=== PATIENT | male | born 1995 | race African-American/Black ===

== ENCOUNTER 2017-07-08 02:55 | Emergency (ER) | payer BC ==
[2017-07-08 03:05] VITALS: TEMP 36.8
--- NOTE | 2017-07-08 03:09 | EMERGENCY ROOM VISIT NOTE ---
History Report prepared by Thai: Tyrell Lassiter Under the Supervision of: Dr. Karena Kam D.O. First contact with patient: 02:53 Stated Complaint: ALCOHOL OVERDOSE History of Present Illness The patient is a 23 year old male who presents to the Emergency Room with an alcohol overdose. EMS states the patient trespassed into a random person's house , and he refused to leave. They report the patient has been smoking marijuana and drinking [employer]. The patient states he has had 13 shots over the past 9 hours. He reports his father has severe colon cancer, and he just wants him to live. The patient denies any other drug use and trauma to himself. HPI limited secondary to the patient's intoxication. Source of History: patient, EMS History Limited By: intoxication Review of Systems ROS is limited secondary to the patient's intoxication. Past Medical & Surgical Unobtainable secondary to the patient's intoxication. Family History Unobtainable secondary to the patient's intoxication. Social History Occupation Status: [employer] student Current/Historical Medications Unable to Obtain Active Prescriptions or Reported Meds Physical Exam Vital Signs Date Time Temp Pulse Resp B/P (MAP) Pulse Ox O2 Delivery O2 Flow Rate FiO2 07/08/17 05:45 73 16 95 07/08/17 05:31 84/42 07/08/17 05:30 72 17 95 07/08/17 05:15 75 16 96 07/08/17 05:01 93/39 07/08/17 05:00 81 16 96 07/08/17 04:55 75 15 96 07/08/17 04:40 87 07/08/17 04:38 79/40 07/08/17 04:37 07/08/17 04:31 07/08/17 04:25 72 17 95 07/08/17 04:10 83 19 96 07/08/17 04:01 85/42 07/08/17 03:55 81 13 07/08/17 03:39 105 07/08/17 03:16 92 18 90/52 98 Room Air 07/08/17 03:16 07/08/17 03:05 36.8 98 18 98 Room Air Physical Exam General: Patient seems slightly agitated and smells of alcohol. HEENT: Head - normocephalic and atraumatic Pupils are equal, round, and reactive to light. Extraocular eye muscles are intact, and sclera are anicteric. Nose - moist nasal mucosa without discharge. Mouth - moist buccal mucosa. Oropharynx is nonerythematous and there is no tonsillar exudate or edema noted. Neck: Supple; no JVD, nuchal rigidity, cervical lymphadenopathy. Heart: Tachycardic rate and regular rhythm. There is a normal S1 and S2 with no murmurs, clicks, or gallops appreciated. Lungs: Clear to auscultation bilaterally with no wheezes, rales, or rhonchi. Abdomen: Soft, completely nontender, nondistended, with good bowel sounds. There are no palpable pulsatile masses or hepatosplenomegaly. There is no guarding, rigidity, or rebound noted. Extremities: No evidence of cyanosis, clubbing, or edema. There are easily palpable peripheral pulses. Abrasion to the left popliteal fossa from his cat. Skin: warm and dry with good turgor and no rashes. Medical Decision & Procedures Laboratory Results 07/08/17 03:05 Test 07/08/17 03:05 Anion Gap 9.0 mmol/L (3-11) Estimated GFR () 111.4 Estimated GFR (Non- 96.1 BUN/Creatinine Ratio 10.5 (10-20) Calcium Level 8.8 mg/dl (8.5-10.1) Ethyl Alcohol mg/dL 265.0 mg/dl (0-3) Laboratory results per my review. ED Course 0254: Past medical records reviewed. The patient was evaluated in room A12B. A complete history and physical exam was performed. Labs were drawn as above. The patient was placed in the prone position to avoid aspiration. He was observed on a pvc monitor and pulse oximeter. 0445: I reevaluated the patient. He is sound asleep and his vitals are stable other than his blood pressure being low. 0553: I reevaluated the patient. He is sound asleep, his vitals are stable, and his blood pressure no from my last evaluation. 0630: The patient will be signed out to Dr. Delgado at the change of shift. Medical Decision The patient is a 22 year old male who presents to the ED with an alcohol overdose. Differential diagnosis includes alcohol overdose, drug intoxication, closed head injury, hypoglycemia. Lab results show: alcohol of 265, normal renal function and glucose. This is a 22-year-old male who was brought to the emergency room after consuming too much alcohol. The patient was accompanied by police and EMS. He was cooperative for us. The patient was observed here in the emergency department while he sobered up. His blood alcohol level was significantly elevated. He will require some additional time to sober up. The case was signed out to Dr. Delgado at change of shift. Impression Primary Impression: Alcohol overdose Scribe Attestation The scribe's documentation has been prepared under my direction and personally reviewed by me in its entirety. I confirm that the note above accurately reflects all work, treatment, procedures, and medical decision making performed by me. Departure Information Dispostion Still a Patient Prescriptions Unable to Obtain Active Prescriptions or Reported Meds Forms HOME CARE DOCUMENTATION FORM, IMPORTANT VISIT INFORMATION Patient Instructions ED Overdose Alcohol, [facility]: [employer] Students and Alcohol Related Visits, My [facility] Additional Instructions Rest. Take plenty of clear liquids. Avoid such excessive alcohol use in the future Take tylenol for headache Problem Qualifiers Primary Impression: Alcohol overdose Encounter type: initial encounter Injury intent: accidental or unintentional Qualified Codes: T51.91XA - Toxic effect of unspecified alcohol , accidental (unintentional), initial encounter
[2017-07-08 03:38] LABS: BLOOD UREA NITROGEN 12 mg/dl (7-18); BUN/CREATININE RATIO 10.5 (10-20); CALCIUM 8.8 mg/dl (8.5-10.1); CARBON DIOXIDE 25 mmol/L (21-32); CHLORIDE 112 mmol/L (98-107); GLUCOSE 93 mg/dl (70-99); SODIUM 146 mmol/L (136-145)
--- NOTE | 2017-07-08 07:44 | EMERGENCY ROOM VISIT NOTE ---
ED Visit Note Received patient in signout. History and physical verified by me. Patient rested without further incident in the emergency department. He will be discharged into the care of a friend Current/Historical Medications Unable to Obtain Active Prescriptions or Reported Meds Vital Signs Date Time Temp Pulse Resp B/P (MAP) Pulse Ox O2 Delivery O2 Flow Rate FiO2 07/08/17 07:10 77 14 72/47 94 Room Air 07/08/17 07:07 77 07/08/17 06:35 77 17 95 07/08/17 06:20 81 16 95 07/08/17 06:05 96 23 94 07/08/17 06:01 85/41 07/08/17 05:50 74 16 95 07/08/17 05:45 73 16 95 07/08/17 05:31 84/42 07/08/17 05:30 72 17 95 07/08/17 05:15 75 16 96 07/08/17 05:01 93/39 07/08/17 05:00 81 16 96 07/08/17 04:55 75 15 96 07/08/17 04:40 87 07/08/17 04:38 79/40 07/08/17 04:37 07/08/17 04:31 07/08/17 04:25 72 17 95 07/08/17 04:10 83 19 96 07/08/17 04:01 85/42 07/08/17 03:55 81 13 07/08/17 03:39 105 07/08/17 03:16 92 18 90/52 98 Room Air 07/08/17 03:16 07/08/17 03:05 36.8 98 18 98 Room Air Laboratory Results 07/08/17 03:05 Test 07/08/17 03:05 Anion Gap 9.0 mmol/L (3-11) Estimated GFR () 111.4 Estimated GFR (Non- 96.1 BUN/Creatinine Ratio 10.5 (10-20) Calcium Level 8.8 mg/dl (8.5-10.1) Ethyl Alcohol mg/dL 265.0 mg/dl (0-3) Departure Information Impression Primary Impression: Alcohol overdose Dispostion Still a Patient Condition FAIR Prescriptions Unable to Obtain Active Prescriptions or Reported Meds Forms HOME CARE DOCUMENTATION FORM, IMPORTANT VISIT INFORMATION Patient Instructions [facility]: [employer] Students and Alcohol Related Visits, ED Overdose Alcohol Additional Instructions Rest. Take plenty of clear liquids. Avoid such excessive alcohol use in the future Take tylenol for headache
[2017-07-08 08:24] VITALS: BP 92/38; PULSE 74; O2SAT 95
== END 2017-07-08 08:26 | disposition home or self-care (01) ==
LOC: EDBD 02:55 → C.EDA 02:58
DX: T51.91XA Toxic effect of unspecified alcohol, accidental (unintentional), initial encounter (principal)